=== PATIENT | male | born 1955 | race Caucasian/White ===

== ENCOUNTER 2018-12-14 21:05 | Emergency (ER) | payer MEDICARE, MEDICAID ==
[~2018-12-14] VITALS: Ht 193 cm; Wt 82.6 kg
--- NOTE | 2018-12-14 21:05 | NUR ---
Patient to ER bed 1 to gown for evaluation. Side rails up.
[2018-12-14] MEDS ORDERED: NACL 0.9% 1,000 ML IV ONE (21:06)
--- NOTE | 2018-12-14 21:07 | NUR ---
Dr. Espitia bedside for Pt eval
[2018-12-14 21:12] VITALS: BP_SYST 132
--- NOTE | 2018-12-14 21:12 | NUR ---
Pt BIBA to ED C/O chronic neck pain. No relieving or exacerbating factors. Per EMS, [place] to [place]. Pt denies any trauma, falls, loss of consciousness, head trauma, neck trauma, or injuries on body. Admits to consuming an alcoholic beverage today. No other injuries and or complaints noted. VSS no s/s of acute distress. Resting on gurney with rails up
[2018-12-14] MEDS ORDERED: KETOROLAC TROMETHAMINE 30 MG VIAL IVP ONE (21:15)
--- NOTE | 2018-12-14 21:15 | NUR ---
Pt verbally stated he does not wish to have anything remotely invasive done. VSS no s/s of acute distress. A/O x 3
--- NOTE | 2018-12-14 21:30 | NUR ---
Pt pulled out IV access, and once again verbalized that he does not wish to receive any "invasive" Tx, such as IV access
--- NOTE | 2018-12-14 21:37 | NUR ---
informed patient that Dr ordered Saline lock and blood work. Patient states " No needles." Patient refusing blood draw or any other tests ordered by MD. notified. Patient states " Leave me alone. I only want somewhere to sleep." Patient able to ambulate with steady gait. AAO x 4. Patient pending AMA papers.
[2018-12-14 21:55] VITALS: BP_SYST 132
--- NOTE | 2018-12-14 21:55 | NUR ---
Patient does not wish to proceed with medical care recommended by Dr. Espitia. Patient given information related to possible complications, up to and including , which could occur as a result of leaving hospital at this time. Patient verbalizes understanding of risks involved leaving against medical advice. Patient has signed AMA form.
--- NOTE | 2018-12-14 22:12 | NUR ---
Note negro in EDM - 12/15/18 at 0034 by [email or web address] informed patient that ordered Saline lock and blood work. Patient states " No needles." Patient refusing blood draw or any other tests ordered by . notified. Patient states " Leave me alone. I only want somewhere to sleep." Patient able to ambulate with steady gait. AAO x 4. Patient pending AMA papers.
[2018-12-14 22:21] LABS: BILIRUBIN,URINE NEGATIVE (NEGATIVE); CLARITY/URINE CLEAR (CLEAR); COLOR,URINE YELLOW (YELLOW); GLUCOSE,URINE NEGATIVE (NEGATIVE); KETONES,URINE TRACE (NEGATIVE); LEUKOCYTE ESTERASE ,URINE NEGATIVE (NEGATIVE); NITRITE, URINE NEGATIVE (NEGATIVE); PH,URINE 5.5 (5.0-8.0); PROTEIN URINE TRACE (NEGATIVE); UROBILINOGEN,URINE 0.2 (0.2-1.0)
[2018-12-14 22:49] LABS: BLOOD, URINE TRACE (NEGATIVE)
[2018-12-14 22:55] LABS: BARBITURATE, URINE NEGATIVE (NEG <=200); BENZODIAZEPINE, URINE NEGATIVE (NEG <=150); CANNABINOID, URINE POSITIVE (NEG <=50); COCAINE, URINE NEGATIVE (NEG <=150); METHAMPHETAMINES SCREEN,URINE POSITIVE (NEG <=500); OPIATE, URINE POSITIVE (NEG <=100); PHENCYCLIDINE SCREEN,URINE NEGATIVE (NEG <=25); UR TRICYCLIC ANTIDEPRESSANTS NEGATIVE (NEG <=300); URINE AMPHETAMINE POSITIVE (NEG <=500); URINE METHADONE NEGATIVE (NEG <=200); URINE OXYCODONE SCREEN NEGATIVE (NEG <=100); URINE PROPOXYPHENE SCREEN NEGATIVE (NEG <=300)
[2018-12-14 23:13] LABS: BACTERIA,URINE FEW /HPF (None Seen); RBC,URINE 0-3 /HPF (0-3); WBC,URINE 0-3 /HPF (0-3)
[2018-12-14 23:14] LABS: MUCUS,URINE 1+ /LPF (None Seen)
== END 2018-12-14 21:55 | disposition left against medical advice (07) ==
LOC: SED 21:05
DX: G89.29 Other chronic pain (principal); M54.2 Cervicalgia; F10.10 Alcohol abuse, uncomplicated; Z88.8 Allergy status to other drugs, medicaments and biological substances
CPT/HCPCS: 80307; 81000-TC; 93005; 99284

== ENCOUNTER 2019-02-05 14:01 | Emergency (ER) | payer MEDICARE, MEDICAID ==
[~2019-02-05] VITALS: Ht 185.4 cm; Wt 72.6 kg
[2019-02-05 14:11] VITALS: BP_SYST 114
[2019-02-05] MEDS ORDERED: ceFAZolin SODIUM 1 GM VIAL IM ONE (14:45)
[2019-02-05 15:30] VITALS: BP_SYST 114
== END 2019-02-05 15:25 | disposition home or self-care (01) ==
LOC: SED 14:01
DX: L03.116 Cellulitis of left lower limb (principal); Z88.8 Allergy status to other drugs, medicaments and biological substances
CPT/HCPCS: 96372; 99283; J0690